=== PATIENT | male | born 1985 | race Caucasian/White ===

== ENCOUNTER 2016-05-19 22:28 | Emergency (ER) | payer OTHER ==
[~2016-05-19] VITALS: Ht 177.8 cm; Wt 113.0 kg
[~2016-05-19 22:28] MED LIST: Allopurinol PO; Lisinopril PO; METH4TAB17 PO
[2016-05-20] MEDS ORDERED: SODIUM CHLORIDE 0.9% 1,000 ML IV ONE (00:33)
[2016-05-20] MEDS ORDERED: ONDANSETRON HCL 4MG/2ML VIAL IV STA (00:33)
[2016-05-20] MEDS ORDERED: FENTANYL CITRATE/PF 50MCG/ML 2ML VIAL IV ONE (00:45)
[2016-05-20 01:02] LABS: BASOPHILS % 0.3 % (0.0-2.0); DIFFERENTIAL COMMENT 0; EOSINOPHILS % 0.9 % (0.0-5.0); HEMATOCRIT. 36.8 % (42.0-52.0); HEMOGLOBIN. 12.3 g/dL (14.0-18.0); LYMPHOCYTES % 9.5 % (20.0-50.0); MEAN CORPUSCULAR HEMOGLOBIN 26.5 pg (28.0-32.0); MEAN CORPUSCULAR HGB CONC 33.4 g/dL (31.0-37.0); MEAN CORPUSCULAR VOLUME 79.3 fL (80.0-94.0); MEAN PLATELET VOLUME 7.7 fl (7.4-10.4); MONOCYTES % 3.9 % (2.0-8.0); NEUTROPHILS % 85.4 % (40.0-76.0); PLATELET 285 x1000/uL (130-400); RED BLOOD CELL COUNT 4.64 mill/uL (4.7-6.1); RED CELL DISTRIBUTION WIDTH 15.4 % (11.6-14.6); WHITE BLOOD COUNT 9.6 x1000/uL (4.5-11.0)
[2016-05-20 01:08] LABS: CALCIUM 9.1 mg/dL (8.5-10.1); URIC ACID 10.2 mg/dL (2.6-7.2)
[2016-05-20] MEDS ORDERED: KETOROLAC 30MG/ML VIAL IV ONE (03:30)
[2016-05-20 05:42] VITALS: BP 119/71
== END 2016-05-20 05:45 | disposition home or self-care (01) ==
LOC: ER 22:28
DX: M25.511 Pain in right shoulder (principal); M10.9 Gout, unspecified; M13.0 Polyarthritis, unspecified; F12.10 Cannabis abuse, uncomplicated; N28.9 Disorder of kidney and ureter, unspecified; Z90.49 Acquired absence of other specified parts of digestive tract
CPT/HCPCS: 36415; 73030; 80048; 84550; 85025; 96361; 96374; 96375; 99285; J1885; J2405; J3010; J7030; Z7610

== ENCOUNTER 2016-05-31 13:59 | Emergency (ER) | payer OTHER ==
[~2016-05-31] VITALS: Ht 170.2 cm; Wt 81.0 kg
[2016-05-31] MEDS ORDERED: ONDANSETRON HCL 4MG/2ML VIAL IV STA (14:27)
[2016-05-31] MEDS ORDERED: KETOROLAC 30MG/ML VIAL IV STA (14:27)
[2016-05-31] MEDS ORDERED: SODIUM CHLORIDE 0.9% 1,000 ML IV ONE (14:27)
[2016-05-31] MEDS ORDERED: DEXAMETHASONE 10MG/ML 1ML VIAL IV ONE (14:30)
[2016-05-31 14:44] LABS: BASOPHILS % 0.7 % (0.0-2.0); DIFFERENTIAL COMMENT 0; HEMATOCRIT. 34.9 % (42.0-52.0); HEMOGLOBIN. 11.7 g/dL (14.0-18.0); MEAN CORPUSCULAR HEMOGLOBIN 25.7 pg (28.0-32.0); MEAN CORPUSCULAR HGB CONC 33.4 g/dL (31.0-37.0); MEAN CORPUSCULAR VOLUME 76.9 fL (80.0-94.0); MEAN PLATELET VOLUME 7.2 fl (7.4-10.4); MONOCYTES % 8.1 % (2.0-8.0); NEUTROPHILS % 76.2 % (40.0-76.0); PLATELET 683 x1000/uL (130-400); RED BLOOD CELL COUNT 4.54 mill/uL (4.7-6.1); WHITE BLOOD COUNT 11.8 x1000/uL (4.5-11.0)
[2016-05-31 14:51] LABS: CHLORIDE 99 mEq/L (98-107); INDEX HEMOLYSI 1 (1-3); INDEX ICTERIC 1 (1-4); INDEX LIPEMIC 1 (1-3)
[2016-05-31 15:00] LABS: ALANINE AMINOTRANSFERASE 37 IU/L (13-61); ALBUMIN 2.8 g/dL (3.4-5.0); ANION GAP 16; CALCIUM 10.6 mg/dL (8.5-10.1); CARBON DIOXIDE 26 mEq/L (21-32); LIPASE 197 IU/L (73-393); UREA NITROGEN BLOOD 38 mg/dL (7-21); eGFR 36 mL/min (>60)
[2016-05-31 15:50] LABS: CLARITY URINE CLEAR (CLEAR); COLOR URINE YELLOW (YELLOW); GLUCOSE URINE NEGATIVE (NEGATIVE); KETONES URINE TRACE (NEGATIVE); LEUKOCYTE ESTERASE URINE NEGATIVE (NEGATIVE); NITRITE URINE NEGATIVE (NEGATIVE); OCCULT BLOOD URINE NEGATIVE (NEGATIVE); PH URINE 5.5 (4.5-8.0); PROTEIN URINE 4+ (NEGATIVE); SPECIFIC GRAVITY URINE 1.024 (1.005-1.030)
[2016-05-31 16:08] LABS: BACTERIA URINE 1+; RBC URINE 0-2 /hpf (0-2); SQUAMOUS EPITHELIAL CELL URINE RARE /lpf (RARE/1+); WBC URINE 0-2 /hpf (0-2)
[2016-05-31 16:42] VITALS: BP 109/60
== END 2016-05-31 17:09 | disposition left against medical advice (07) ==
LOC: ER 14:08
DX: N28.9 Disorder of kidney and ureter, unspecified (principal); N50.812 Left testicular pain; M54.30 Sciatica, unspecified side; F12.10 Cannabis abuse, uncomplicated; R10.9 Unspecified abdominal pain; R19.7 Diarrhea, unspecified; R11.0 Nausea; Z90.49 Acquired absence of other specified parts of digestive tract
CPT/HCPCS: 36415; 71010; 74176; 80053; 81001; 83690; 85025; 96361; 96374; 96375; 99285; J1100; J1885; J2405; J7030; Z7610

== ENCOUNTER 2016-06-09 23:13 | Emergency (ER) | payer SELFPAY ==
[~2016-06-09] VITALS: Ht 177.8 cm; Wt 113.0 kg
[2016-06-10] MEDS ORDERED: KETOROLAC 60MG/2ML VIAL IM STA (02:37)
[2016-06-10 02:51] LABS: HEMATOCRIT. 30.3 % (42.0-52.0); HEMOGLOBIN. 9.8 g/dL (14.0-18.0); MEAN CORPUSCULAR HEMOGLOBIN 25.2 pg (28.0-32.0); MEAN CORPUSCULAR HGB CONC 32.2 g/dL (31.0-37.0); MEAN CORPUSCULAR VOLUME 78.2 fL (80.0-94.0); PLATELET 446 x1000/uL (130-400); RED BLOOD CELL COUNT 3.87 mill/uL (4.7-6.1); RED CELL DISTRIBUTION WIDTH 15.5 % (11.6-14.6); WHITE BLOOD COUNT 12.4 x1000/uL (4.5-11.0)
[2016-06-10 03:00] LABS: DIFFERENTIAL COMMENT 1
[2016-06-10] MEDS ORDERED: BACITRACIN ZINC OINT UDPKT TOP ONE (03:15)
[2016-06-10] MEDS ORDERED: LIDOCAINE HCL 1% 20ML VIAL (Pyxis) INJ MC ONE ×2 (03:15→06:15)
[2016-06-10] MEDS ORDERED: CEFTRIAXONE SODIUM 1 G/VIAL IM ONE (06:15)
[2016-06-10 07:30] VITALS: BP 130/77
[2016-06-10 08:08] LABS: PLATELET ESTIMATE INCREASED
== END 2016-06-10 09:00 | disposition home or self-care (01) ==
LOC: ER 23:15
DX: L02.415 Cutaneous abscess of right lower limb (principal); M25.561 Pain in right knee; M10.9 Gout, unspecified; N28.89 Other specified disorders of kidney and ureter; Z90.49 Acquired absence of other specified parts of digestive tract
CPT/HCPCS: 10060; 36415; 73564; 85025; 96372; 99285; J1885; J3490

== ENCOUNTER 2016-06-13 23:56 | Emergency (ER) | payer MEDICAID ==
[~2016-06-13] VITALS: Ht 177.8 cm; Wt 115.0 kg
[2016-06-14 00:09] VITALS: BP 128/60
== END 2016-06-14 01:01 | disposition home or self-care (01) ==
LOC: ER 23:58
DX: L02.415 Cutaneous abscess of right lower limb (principal); Z90.49 Acquired absence of other specified parts of digestive tract; Z79.899 Other long term (current) drug therapy
CPT/HCPCS: 99281

== ENCOUNTER 2017-02-23 05:50 | Emergency (ER) | payer MEDICAID ==
[~2017-02-23] VITALS: Ht 180.3 cm; Wt 100.0 kg
[2017-02-23] MEDS ORDERED: ONDANSETRON 4MG ODT PO ONE ×2 (10:45→11:15)
[2017-02-23] MEDS ORDERED: KETOROLAC 60MG/2ML VIAL IM ONE (10:45)
[2017-02-23] MEDS ORDERED: KETOROLAC 15MG/ML VIAL IV ONE (11:15)
[2017-02-23] MEDS ORDERED: MORPHINE SULFATE 4 MG/ML CPJ (NOT FOR IM USE) IV ONE (11:15)
[2017-02-23] MEDS ORDERED: SODIUM CHLORIDE 0.9% 1,000 ML IV ONE (11:15)
[2017-02-23 11:38] LABS: HEMATOCRIT. 38.9 % (42.0-52.0); HEMOGLOBIN. 13.1 g/dL (14.0-18.0); MEAN CORPUSCULAR HEMOGLOBIN 27.5 pg (28.0-32.0); MEAN CORPUSCULAR VOLUME 81.4 fL (80.0-94.0); PLATELET 243 x1000/uL (130-400); RED BLOOD CELL COUNT 4.78 mill/uL (4.7-6.1); RED CELL DISTRIBUTION WIDTH 13.5 % (11.6-14.6)
[2017-02-23 11:59] LABS: PLATELET ESTIMATE NORMAL
[2017-02-23 12:02] LABS: CARBON DIOXIDE 23 mEq/L (21-32); CHLORIDE 106 mEq/L (98-107)
[2017-02-23 13:18] LABS: CLARITY URINE CLEAR (CLEAR); COLOR URINE YELLOW (YELLOW); KETONES URINE NEGATIVE (NEGATIVE); LEUKOCYTE ESTERASE URINE NEGATIVE (NEGATIVE); NITRITE URINE NEGATIVE (NEGATIVE); OCCULT BLOOD URINE NEGATIVE (NEGATIVE); PH URINE 5.5 (4.5-8.0); PROTEIN URINE 3+ (NEGATIVE); SPECIFIC GRAVITY URINE 1.015 (1.005-1.030); UROBILINOGEN URINE 0.2 E.U./dL (0.2-1.0)
[2017-02-23 14:43] VITALS: BP 116/76
== END 2017-02-23 14:48 | disposition home or self-care (01) ==
LOC: ER 05:50
DX: M10.9 Gout, unspecified (principal); N28.9 Disorder of kidney and ureter, unspecified; F12.10 Cannabis abuse, uncomplicated
CPT/HCPCS: 36415; 80053; 81001; 84550; 85025; 93005; 96361; 96374; 96375; 99285; J1885; J2270; J7030; Q0162; Z7610

== ENCOUNTER 2017-02-28 20:49 | Emergency (ER) | payer MEDICAID ==
[~2017-02-28] VITALS: Ht 177.8 cm; Wt 100.0 kg
[2017-02-28] MEDS ORDERED: KETOROLAC 60MG/2ML VIAL IM ONE (23:45)
[2017-03-01 00:05] VITALS: BP 128/76
== END 2017-03-01 00:05 | disposition home or self-care (01) ==
LOC: ER 20:49
DX: M10.9 Gout, unspecified (principal); F12.10 Cannabis abuse, uncomplicated
CPT/HCPCS: 96372; 99283; J1885